=== PATIENT | male | born 1985 | race Caucasian/White ===

== ENCOUNTER 2016-08-31 10:23 | Emergency (ER) | payer OTHER ==
[~2016-08-31] VITALS: Ht 175.3 cm; Wt 95.3 kg
[2016-08-31 10:44] VITALS: BP 147/89
--- NOTE | 2016-08-31 11:16 | RAD ---
Chest, 2 views, 08/31/2016: History: Cough, chest pain The heart size and pulmonary vascularity are normal. The lungs are clear. There is no evidence of pleural fluid or pneumothorax. IMPRESSION: No acute cardiopulmonary abnormality is detected.
[2016-08-31] MEDS ORDERED: PROAIR RESPICL90 MCG IH (11:52)
[2016-08-31] MEDS ORDERED: PRED50TA PO (11:52)
[2016-08-31] MEDS ORDERED: NAPR500T8 PO (11:52)
[2016-08-31] MEDS ORDERED: BENZ100C PO (11:52)
[2016-08-31] MEDS ORDERED: CYCL10TA2 PO (11:52)
--- NOTE | 2016-08-31 11:52 | PHYS DOC ---
Past Medical History Past Medical History: No Pertinent History Past Surgical History: No Surgical History Alcohol Use: Occasionally Drug Use: None Adult General Chief Complaint Chief Complaint: COUGH HPI HPI Patient is a 30 year old male who presents with a productive cough for 4 days. Patient states he also has intermittent mild generalized pain in his chest while coughing. Patient denies any fever. Patient states he is a smoker. Patient also complaining of right flank pain that began a couple weeks ago after he lifted something heavy. Patient states he knows he pulled his flank muscles. Patient denies any urgency frequency dysuria. Review of Systems Review of Systems Constitutional: Denies fever or chills [] Eyes: Denies change in visual acuity, redness, or eye pain [] HENT: Denies nasal congestion or sore throat [] Respiratory: cough Cardiovascular: No additional information not addressed in HPI [] GI: Denies abdominal pain, nausea, vomiting, bloody stools or diarrhea [] : Denies dysuria or hematuria [] Musculoskeletal: Right flank, muscle pain Integument: Denies rash or skin lesions [] Neurologic: Denies headache, focal weakness or sensory changes [] Endocrine: Denies polyuria or polydipsia [] Allergies Allergies Allergies Coded Allergies Type Severity Reaction Last Updated Verified codeine Allergy Intermediate Rash 07/19/14 No Physical Exam Physical Exam Constitutional: Well developed, well nourished, no acute distress, non-toxic appearance. [] HENT: Normocephalic, atraumatic, bilateral external ears normal, oropharynx moist, no oral exudates, nose normal. [] Eyes: PERRLA, EOMI, conjunctiva normal, no discharge. [] Neck: Normal range of motion, no tenderness, supple, no stridor. [] Cardiovascular:Heart rate regular rhythm, no murmur [] Lungs & Thorax: Bilateral breath sounds clear to auscultation [] Abdomen: Bowel sounds normal, soft, no tenderness, no masses, no pulsatile masses. [] Skin: Warm, dry, no erythema, no rash. [] Back: No tenderness, no CVA tenderness. [] Extremities: No tenderness, no cyanosis, no clubbing, ROM intact, no edema. [] Neurologic: Alert and oriented X 3, normal motor function, normal sensory function, no focal deficits noted. [] Psychologic: Affect normal, judgement normal, mood normal. [] Current Patient Data Vital Signs Vital Signs Date Time Temp Pulse Resp B/P Pulse Ox O2 Delivery O2 Flow Rate FiO2 08/31/16 10:44 98.5 87 18 100 Room Air 98.5 EKG EKG [] Radiology/Procedures Radiology/Procedures [] Course & Med Decision Making Course & Med Decision Making Pertinent Labs and Imaging studies reviewed. (See chart for details) Patient is in the ED with symptoms of bronchitis. Chest x-ray interpreted by radiologist is negative for any acute findings. He was encouraged to consider smoking cessation. Discharged with albuterol inhaler prednisone and Tessalon Perles. His symptoms are viral. Encouraged to consider smoking cessation. Discharged with naproxen and Flexeril for right flank muscle pull. Heat or ice recommended to the area. Follow-up with PCP in one week if pain continues. Dragon Disclaimer Dragon Disclaimer This electronic medical record was generated, in whole or in part, using a voice recognition dictation system. Departure Departure Impression: Primary Impression: Acute bronchitis Additional Impression: Smoking addiction Disposition: HOME, SELF-CARE Condition: STABLE Referrals: ULICES TONEY APRN (PCP) Follow-up with your doctor in one week Patient Instructions: Acute Bronchitis, Smoking Cessation Additional Instructions: You seen for acute bronchitis and pulled muscle on your flank region. Take the prescribed medicines as ordered. Follow-up with your doctor in one week if symptoms continue. Apply heat or ice to the affected region. Come back to the ED if symptoms worsen. Scripts Benzonatate (Tessalon Perle)100 Mg Capsule1 Cap PO TID #30 CAP Prov:SHERYL OWUSU APRN 08/31/16 Prednisone 50 Mg Tablet1 Tab PO DAILY #5 TAB Prov:SHERYL OWUSU APRN 08/31/16 Albuterol Sulfate (Proair Respiclick)90 Mcg Aer.pow.[id number] Puff IH PRN Q6HRS PRN SHORTNESS OF BREATH #1 INHALER Prov:SHERYL OWUSU APRN 08/31/16 Cyclobenzaprine Hcl 10 Mg Tablet1 Tab PO TID #30 TAB Prov:SHERYL OWUSU APRN 08/31/16 Naproxen 500 Mg Tablet.dr1 Tab PO BID #60 TAB Ref 1 Prov:SHERYL OWUSU APRN 08/31/16 Problem Qualifiers Primary Impression: Acute bronchitis Bronchitis organism: unspecified organism Qualified Code: J20.9 - Acute bronchitis, unspecified MANUELSHERYL PANDEY JEET Aug 31, 2016 11:52
== END 2016-08-31 12:09 | disposition home or self-care (01) ==
LOC: ER 10:23
DX: J20.9 Acute bronchitis, unspecified (principal); F17.200 Nicotine dependence, unspecified, uncomplicated; R07.89 Other chest pain; Z88.5 Allergy status to narcotic agent
CPT/HCPCS: 71020; 99284